=== PATIENT | male | born 1965 | race Asian ===

== ENCOUNTER 2023-12-24 16:11 | Emergency (ER) | payer SELFPAY ==
[~2023-12-24] VITALS: Ht 165.1 cm; Wt 59.9 kg
[2023-12-24 16:16] VITALS: BP 124/74; PULSE 63; RESP 16; TEMP 97.5; O2SAT 98
[2023-12-24] MEDS: LIDOCAINE MPF 1% 10 MG/ML VIAL INJ ONE (16:34)
[2023-12-24] MEDS: ACETAMINOPHEN EXTRA STRENGTH 500 MG TAB PO ONE (16:37)
[2023-12-24] MEDS ORDERED: BACITRACIN OINT 500 UNITS/GM PKT TP ONE (17:18)
[2023-12-24] MEDS ORDERED: IBUP-1842 PO (17:21)
[2023-12-24] MEDS ORDERED: BACI-418 TP (17:21)
[2023-12-24 17:33] VITALS: BP 124/74; PULSE 63; RESP 16; TEMP 97.5; O2SAT 98
== END 2023-12-24 17:33 | disposition home or self-care (01) ==
LOC: MED 16:11
DX: S61.210A Laceration without foreign body of right index finger without damage to nail, initial encounter (principal); W31.1XXA Contact with metalworking machines, initial encounter; Y93.89 Activity, other specified; Y92.59 Other trade areas as the place of occurrence of the external cause; Y99.8 Other external cause status
CPT/HCPCS: 12001; 73140; 90471; 90715; 99283; J2003

== ENCOUNTER 2023-12-30 13:56 | Emergency (ER) | payer SELFPAY ==
[~2023-12-30] VITALS: Ht 170.2 cm; Wt 59.9 kg
[~2023-12-30 13:56] MED LIST: BACI-418 TP; IBUP-1842 PO
[2023-12-30 14:08] VITALS: BP 107/77; PULSE 55; RESP 16; TEMP 98.4; O2SAT 99
[2023-12-30] MEDS ORDERED: BACITRACIN OINT 500 UNITS/GM PKT TP ONE (15:35)
[2023-12-30] MEDS: BACITRACIN OINT 500 UNITS/GM PKT TP ONE (15:43)
== END 2023-12-30 15:45 | disposition home or self-care (01) ==
LOC: MED 13:56
DX: S61.210D Laceration without foreign body of right index finger without damage to nail, subsequent encounter (principal); Z48.00 Encounter for change or removal of nonsurgical wound dressing; Z79.899 Other long term (current) drug therapy; X58.XXXD Exposure to other specified factors, subsequent encounter
CPT/HCPCS: 99282